=== PATIENT | female | born 1985 | race Caucasian/White ===

== ENCOUNTER 2016-10-10 07:43 | Inpatient (IN) | payer BC ==
[2016-10-10] VITALS (20 sets, daily range): BP systolic 101–177; BP diastolic 56–96
[2016-10-10] MEDS ORDERED: NEXIUM20 MG PO (08:10)
[2016-10-10] MEDS ORDERED: [UNRECOGNIZED DRUG - OTHER] PO (08:10)
[2016-10-10] MEDS ORDERED: DICLEGIS DR 101 EACH PO (08:11)
[2016-10-10 11:15] LABS: EOSINOPHIL (%) 0.4 % (0-5); EOSINOPHIL COUNT 0.1 K/uL (0-0.3); HEMATOCRIT 38.3 % (36.0-46.0); IMMATURE GRANULOCYTE (%) 0.8 % (0.0-0.7); IMMATURE GRANULOCYTE COUNT 0.1 K/uL; INSTRUMENT ABS NEUTROPHIL CT 9.9 K/uL; LYMPHOCYTE COUNT 1.3 K/uL (1.0-2.8); MCH 29.4 PG (29.0-34.0); MCHC 33.4 G/DL (30.0-36.0); MCV 87.8 FL (83-99); MONOCYTE (%) 5.2 % (3-12); MONOCYTE COUNT 0.6 K/uL (0-0.8); NEUTROPHIL (%) 82.3 % (45-76); NEUTROPHIL COUNT 9.9 K/uL (1.8-6.4); PLATELET COUNT 167 K/uL (156-360); RBC DIS.WIDTH-CV 13.2 % (11.8-14.6); RBC DIS.WIDTH-SD 42.8 % (39-53); RED BLOOD COUNT 4.36 M/uL (3.80-5.20)
[2016-10-10] MEDS ORDERED: MOTRIN800 MG PO (22:33)
[2016-10-11 00:19] VITALS: BP 112/65
[2016-10-11 01:24] VITALS: BP 119/65
[2016-10-11 06:29] VITALS: BP 116/59
[2016-10-11 06:54] LABS: EOSINOPHIL (%) 0.3 % (0-5); EOSINOPHIL COUNT 0.1 K/uL (0-0.3); HEMATOCRIT 31.2 % (36.0-46.0); IMMATURE GRANULOCYTE (%) 0.9 % (0.0-0.7); IMMATURE GRANULOCYTE COUNT 0.2 K/uL; INSTRUMENT ABS NEUTROPHIL CT 14.1 K/uL; LYMPHOCYTE COUNT 1.8 K/uL (1.0-2.8); MCH 29.6 PG (29.0-34.0); MCHC 33.7 G/DL (30.0-36.0); MCV 87.9 FL (83-99); MEAN PLAT.VOLUME 11.6 uM^3 (9.5-12.4); MONOCYTE (%) 6.6 % (3-12); MONOCYTE COUNT 1.1 K/uL (0-0.8); NEUTROPHIL (%) 81.4 % (45-76); NEUTROPHIL COUNT 14.1 K/uL (1.8-6.4); PLATELET COUNT 140 K/uL (156-360); RBC DIS.WIDTH-CV 13.2 % (11.8-14.6); RBC DIS.WIDTH-SD 42.9 % (39-53); RED BLOOD COUNT 3.55 M/uL (3.80-5.20)
[2016-10-11 07:17] LABS: WHITE BLOOD COUNT 17.3 K/uL (4.1-10.2)
[2016-10-11 15:30] VITALS: BP 119/85
[2016-10-11 23:05] VITALS: BP 118/73
[2016-10-12 07:20] VITALS: BP 119/75
[2016-10-12 14:58] VITALS: BP 115/75
== END 2016-10-12 23:01 | disposition home or self-care (01) | DRG 775 ==
LOC: LDRP-OP 07:43 → 2WEST 07:44 → LDRP-OP 17:31 → 2WEST 21:46 → LDRP-OP 11-02 19:46
PROVIDERS: Midwife; Obstetrics & Gynecology
DX: O48.0 Post-term pregnancy (principal); O99.354 Diseases of the nervous system complicating childbirth; G43.909 Migraine, unspecified, not intractable, without status migrainosus; O99.344 Other mental disorders complicating childbirth; F41.9 Anxiety disorder, unspecified; Z3A.41 41 weeks gestation of pregnancy; Z37.0 Single live birth
CPT/HCPCS: 85025; C1755; J3010; J7120